=== PATIENT | male | born 1990 | race Caucasian/White ===

== ENCOUNTER 2022-05-01 13:05 | Emergency (ER) | payer OTHER ==
[~2022-05-01] VITALS: Ht 180.3 cm; Wt 89.0 kg
[2022-05-01 13:15] VITALS: BP 174/91
== END 2022-05-01 18:58 | disposition left against medical advice (07) ==
LOC: ER 13:05
DX: Z53.21 Procedure and treatment not carried out due to patient leaving prior to being seen by health care provider (principal); I49.8 Other specified cardiac arrhythmias
CPT/HCPCS: 93005